=== PATIENT | female | born 1995 | race American Indian/Alaskan Native ===

== ENCOUNTER 2018-08-29 23:15 | Emergency (ER) | payer SELFPAY ==
[2018-08-29 23:37] VITALS: O2SAT 100
[2018-08-30 00:01] VITALS: BMI 27.4
--- NOTE | 2018-08-30 00:24 | ED PDOC ---
Arrival/HPI - General Historian: Patient - History of Present Illness Narrative History of Present Illness (Text): 08/30/18 00:45 23-year-old female presents today with left eye redness and irritation. Patient states 3 days ago she had fake eyelashes put on the left eye and for a short period of time the left eye was glued shut. Patient states over the past few days she's noticed erythema and some irritation to the left aspect of the eye/sclera. Patient denies blurred vision. Denies pruritus. Denies fevers or chills. Denies pain with eye movement. Denies trauma. Denies periorbital edema or erythema. No other complaints <Irene Christy - Last Filed: 08/30/18 00:20> <Hiro Cabrera - Last Filed: 08/30/18 00:58> - General Chief Complaint: Eye Problem Time Seen by Provider: 08/29/18 23:16 Past Medical History - Provider Review Nursing Documentation Reviewed: Yes - Travel History Have you recently traveled outside [place] w/in the past 3 mons?: No - Tetanus Immunization Tetanus Immunization: Unknown - Psychiatric Hx Substance Use: No - Anesthesia Hx Anesthesia: No <Irene Christy - Last Filed: 08/30/18 00:20> Family/Social History - Physician Review Nursing Documentation Reviewed: Yes Family/Social History: Unknown Family HX Smoking Status: Never Smoked Hx Alcohol Use: No Hx Substance Use: No <Irene Christy - Last Filed: 08/30/18 00:20> Allergies/Home Meds <Irene Christy - Last Filed: 08/30/18 00:20> <Hiro Cabrera - Last Filed: 08/30/18 00:58> Allergies/Adverse Reactions: Allergies banana Allergy (Verified 08/30/18 00:01) RASH Review of Systems - Review of Systems Constitutional: absent: Fatigue, Fevers Eyes: Other (eye redness). absent: Vision Changes Respiratory: absent: SOB, Cough Cardiovascular: absent: Chest Pain, Palpitations Gastrointestinal: absent: Abdominal Pain, Nausea, Vomiting Musculoskeletal: absent: Arthralgias Neurological: absent: Headache, Dizziness Psychiatric: absent: Anxiety, Depression <Irene Christy - Last Filed: 08/30/18 00:20> Physical Exam Vital Signs Reviewed: Yes Vital Signs Temp Pulse Resp BP Pulse Ox 08/29/18 23:37 98.1 F 69 18 118/63 100 Temperature: Afebrile Blood Pressure: Normal Pulse: Regular Respiratory Rate: Normal Appearance: Positive for: Well-Appearing, Non-Toxic, Comfortable Pain Distress: None Mental Status: Positive for: Alert and Oriented X 3 - Systems Exam Head: Present: Atraumatic, Other (no erythema. no periorbital edema or erythema. ). No: Tenderness, Swelling, Ecchymosis Pupils: Present: PERRL Extroacular Muscles: Present: EOMI. No: Entrapment Conjunctiva: Present: Injected (left conjunctival injection noted to lateral aspect, no corneal abrasion, no dye uptake, no corneal ulceration, no hyphema. ) Ears: Present: Normal, NORMAL TM Mouth: Present: Moist Mucous Membranes. No: Drooling, Trismus Pharnyx: Present: Normal Nose (External): Present: Atraumatic Nose (Internal): Present: Normal Inspection Neck: Present: Normal Range of Motion Respiratory/Chest: Present: Clear to Auscultation, Good Air Exchange. No: Respiratory Distress, Accessory Muscle Use Cardiovascular: Present: Regular Rate and Rhythm, Normal S1, S2. No: Murmurs Neurological: Present: GCS=15 Skin: Present: Warm, Dry, Normal Color Psychiatric: Present: Alert, Oriented x 3 <Irene Christy - Last Filed: 08/30/18 00:20> Vital Signs Temp Pulse Resp BP Pulse Ox 08/29/18 23:37 98.1 F 69 18 118/63 100 <Hiro Cabrera - Last Filed: 08/30/18 00:58> Medical Decision Making ED Course and Treatment: 08/30/18 00:49 Patient is nontoxic well appearing in no distress left eye; Conjunctival injection noted, PERRLA, extraocular muscles intact.no corneal abrasion or ulceration advised follow-up with the primary care physician on doctor within the next 2 days. Advised immediate return if symptoms worsen persist or if new concerning symptoms develop Patient verbalizes understanding of discharge instructions and need for immediate followup. all aspects of this case were discussed the attending of record. Impression: Conjunctivitis Tobrex: 2 drops in the affected eye 4 times daily Followup with the eye doctor within the next 2 days Return immediately if symptoms worsen persist or if new symptoms develop; blurry vision, worsening eye pain, worsening redness or any other concerning symptoms develop. Follow up with her primary care physician within the next 2 days <Irene Christy - Last Filed: 08/30/18 00:20> - PA / [employer] / Resident Statement / has reviewed & agrees with the documentation as recorded. <Hiro Cabrera - Last Filed: 08/30/18 00:58> Disposition/Present on Arrival - Present on Arrival Any Indicators Present on Arrival: No History of DVT/PE: No History of Uncontrolled Diabetes: No Urinary Catheter: No History of Decub. Ulcer: No History Surgical Site Infection Following: None - Disposition Have Diagnosis and Disposition been Completed?: Yes Disposition Time: 00:21 Patient Plan: Discharge <Irene Christy - Last Filed: 08/30/18 00:20> <Hiro Cabrera - Last Filed: 08/30/18 00:58> - Disposition Diagnosis: Conjunctivitis Disposition: HOME/ ROUTINE Condition: GOOD Discharge Instructions (ExitCare): Conjunctivitis ([place]) (DC) Additional Instructions: Tobrex: 2 drops in the affected eye 4 times daily Followup with the eye doctor within the next 2 days Return immediately if symptoms worsen persist or if new symptoms develop; blurry vision, worsening eye pain, worsening redness or any other concerning symptoms develop. Follow up with her primary care physician within the next 2 days Prescriptions: Tobramycin 0.3% [Tobrex 0.3% Ophth Oint] 1 appl OS TID #1 tube Referrals: Ehsan Vargas MD [Staff Provider] - Follow up with primary Rhea Bliss MD [Medical Doctor] - Follow up with primary [facility] [Outside] - Follow up with primary Forms: [facility] ([place]), WORK NOTE
[2018-08-30 01:34] VITALS: BP 120/79; PULSE 67; RESP 17; TEMP 98
== END 2018-08-30 01:34 | disposition home or self-care (01) ==
LOC: ED 23:15
DX: H10.9 Unspecified conjunctivitis (principal)